=== PATIENT | female | born 1955 | race Caucasian/White ===

== ENCOUNTER → 2018-09-01 | Outpatient (CLI) | payer BC ==
[~2018-09-01] MED LIST: ALBU0.63 NEB; ALBU2.5V8 INH; BENZ200C47 PO; CITA40TA5 PO; CYCL10TA2 PO; DOCU-150 PO; ESTR0.5T VG; GABA800T5 PO; HYDR-3164 PO; MECL25TA3 PO; METF10007 PO; RAMI10CA53 PO; TYLENOL PM PO; VENTOLIN HFA18 GM INH
[2018-09-01 14:58] LABS: BASO % 1 % (0-3); EOS # 0.1 x10^3/uL (0.0-0.7); EOS % 1 % (0-3); HEMATOCRIT 37.9 % (36.0-47.0); HEMOGLOBIN 12.8 g/dL (12.0-15.5); LYMPH % 45 % (24-48); MEAN CORPUSCULAR HEMOGLOBIN 30 pg (25-35); MEAN CORPUSCULAR HGB CONC 34 g/dL (31-37); MEAN CORPUSCULAR VOLUME 88 fL (79-100); MONO # 0.4 x10^3/uL (0.0-1.1); MONO % 6 % (0-9); NEUT # 3.1 x10^3uL (1.8-7.7); NEUT % 47 % (31-73); PLATELET COUNT 194 x10^3/uL (140-400); RED BLOOD COUNT 4.32 x10^6/uL (3.50-5.40); RED CELL DISTRIBUTION WIDTH 12.8 % (11.5-14.5); WHITE BLOOD COUNT 6.6 x10^3/uL (4.0-11.0)
[2018-09-01 15:21] LABS: CALCIUM 9.1 mg/dL (8.5-10.1); CREATININE 0.9 mg/dL (0.6-1.0); GFR 63.4; POTASSIUM 4.2 mmol/L (3.5-5.1)
[2018-09-02 05:21] LABS: HEMOGLOBIN A1C 6.4 % (4.8-5.6)
--- NOTE | 2018-09-04 09:48 | NUR ---
FAXED PRE - OP TEST REPORTS TO 'S OFFICE FOR REVIEW AND RECEIVED TRANSMITTAL CONFIRMATION.
== END | disposition home or self-care (01) ==
LOC: SURGPAT 14:06
PROVIDERS: ATTEND Surgery
DX: K80.20 Calculus of gallbladder without cholecystitis without obstruction (principal)
CPT/HCPCS: 36415; 80048; 83036; 85025

== ENCOUNTER 2018-09-08 09:34 | Day surgery (SDC) | payer BC ==
[~2018-09-08] VITALS: Ht 162.6 cm; Wt 70.3 kg
[~2018-09-08 09:34] MED LIST changes: +BUPIVAC MPF-EPI 0.5%-1:200000 30 ML VIAL. ONE; +DEXAMETHASONE SOD PHOS 20 MG/5 ML VIAL. ONE; -DOCU-150 PO; +FAMOTIDINE 20 MG/2 ML VIAL ONE; +GLUCAGON,HUMAN RECOMBINANT 1 MG/ML VIAL. ONE; -HYDR-3164 PO; +HYDROmorphone 2 MG/ML VIAL IV PRN; +IOHEXOL 300 MG/ML 100ML VIAL. ONE; +LIDOCAINE 1% PF 2 ML VIAL. ID PRN; +LIDOCAINE 2% PF 5 ML VIAL. ONE; +MORPHINE SULFATE 2 MG/ML VIAL. IV PRN; +ONDANSETRON PF 4 MG/2 ML VIAL. ONE; +PROCHLORPERAZINE 10 MG/2 ML VIAL. IV PRN; +PROPOFOL 20 ML IV ONE; +ROCURONIUM 50 MG/5 ML VIAL. ONE; +SEVOFLURANE > 120 MINUTES. IH ONE; +SURGICEL HEMOSTAT 4X8 EACH. ONE; +fentaNYL PF VIAL 100 MCG/2 ML VIAL IV PRN; +fentaNYL PF VIAL 100 MCG/2 ML VIAL ONE
[2018-09-08] MEDS: IV RINGERS,LACTATED 1000ML 1,000 ML IV SCH ×2 (10:21→11:54)
[2018-09-08] MEDS ORDERED: NEOSTIGMINE 10 MG/10 ML VIAL. ONE (10:56)
[2018-09-08] MEDS ORDERED: GLYCOPYRROLATE 1 MG/5 ML VIAL. ONE (10:56)
[2018-09-08] MEDS ORDERED: NALOXONE 0.4 MG/ML VIAL. ONE (11:36)
--- NOTE | 2018-09-08 11:41 | DISCH ---
DISCHARGE INSTRUCTIONS Condition on Discharge Condition on Discharge: Stable Activity After Discharge Activity Instructions for Disc: Activity as tolerated, Avoid exertion Lifting Instructions after Dis: No heavy lifting Driving Instructions after Dis: Do not drive (3-4 days) Diet after Discharge Diet after Discharge: Regular Wound Incision Care Wound/Incision Care: Ice to area for comfort Other wound/incision instructi: candi shower Tuesday Follow-Up Follow up with: Milind 09/15 MCKENNA TREVINO MD Sep 08, 2018 11:41
--- NOTE | 2018-09-08 11:42 | RAD ---
Intraoperative cholangiogram, 09/08/2018: HISTORY: Cholecystectomy 3 spot films from surgery are presented for review. Contrast has been injected into the cystic duct remnant. 0.3 minutes of fluoroscopy time was utilized. There is good flow contrast into the duodenum at the ampulla. No filling defect is seen in the common duct to suggest a retained calculus. The incompletely opacified intrahepatic ducts are unremarkable. No contrast extravasation is seen. IMPRESSION: No significant abnormality is detected. Electronically signed by: Roni Turner MD (09/08/2018 11:39 AM) [facility]
--- NOTE | 2018-09-08 11:43 | PDOC ---
BRIEF OPERATIVE NOTE Date: Sep 08, 2018 Pre-Op Diagnosis symptomatic cholelithiasis Post-Op Diagnosis same Procedure Performed l/s cholecystectomy with cholangiograms Surgeon Milind Gem Setter Gloria FRAGOSO Anesthesia Type: General Blood Loss 25cc IV Fluid 1100cc Specimens Obtained GB Findings supple GB, normal grams, generous liver Complications none MCKENNA TREVINO MD Sep 08, 2018 11:43
[2018-09-08] MEDS ORDERED: DOCU-150 PO (12:27)
[2018-09-08] MEDS ORDERED: HYDR-3164 PO (12:27)
[2018-09-08] MEDS ORDERED: HYDROcodone/APAP 5/325MG 1 TAB TABLET PO ONE (12:30)
--- NOTE | 2018-09-08 12:52 | OP ---
DATE OF SURGERY: 09/08/2018 PREOPERATIVE DIAGNOSIS: Symptomatic cholelithiasis. POSTOPERATIVE DIAGNOSIS: Symptomatic cholelithiasis. PROCEDURE: Laparoscopic cholecystectomy with cholangiogram. SURGEON: Mckenna Trevino MD ANESTHESIA: General endotracheal. ESTIMATED BLOOD LOSS: 25. IV 1100. INDICATIONS: The patient is a 62-year-old with postprandial right upper quadrant pain and an ultrasound showing stones. She is brought for cholecystectomy. OPERATIVE FINDINGS: The liver was generous, gallbladder was supple. Cholangiograms were normal. DESCRIPTION OF PROCEDURE: The patient brought to the operating suite, given a general endotracheal anesthetic and the abdomen prepped and draped in usual sterile fashion. An infraumbilical incision was infiltrated with local anesthetic, incised and a 5 mm Visiport used to safely gain access into the abdominal cavity, taking care to avoid injury to abdominal contents. Pneumoperitoneum established. Camera inserted. Inspection carried out with results as noted above. With the table in reverse Trendelenburg rolled to the left, the epigastric, midclavicular, and lateral ports were placed under direct vision. The gallbladder was retracted superolaterally and the cystic duct and cystic artery were exposed. The duct was clipped on the gallbladder side. Cholangiograms were made. These were normal. In light of this, the catheter was removed. The cystic duct was clipped x 3 and divided, taking care to avoid injury or compromise the common duct. An anterior and posterior branch of the cystic artery were clipped and divided and the gallbladder freed from the bed with cautery dissection and placed in an EndoCatch bag. Good hemostasis was present and no evidence of bile leak from the fossa was seen. Table returned to level. Gallbladder delivered through the epigastric incision. Epigastric incision closed with interrupted 0 Vicryl suture. Intra-abdominal pressure decreased to 6 cm of water. No bleeding from the epigastric closure or from the midclavicular or lateral port sites after their removal. Abdomen decompressed, camera slowly removed, no bleeding seen. Skin incisions closed with subcuticular 4-0 Monocryl and Steri-Strips. Sterile dressings applied. The patient awakened from her anesthetic and taken to the recovery room in satisfactory condition. MCKENNA TREVINO MD DR: MICHELLE/jacquie JOB#: [id number] / [id number]
[2018-09-08 13:25] VITALS: BP 132/75
--- NOTE | 2018-09-11 14:09 | PATHOLOGY ---
[facility] Accession Number: [id number] . 01 Material submitted: . GALLBLADDER . 01 Clinical history: . Cholelithiasis . 02 Diagnosis: Gallbladder, cholecystectomy: - Cholelithiasis. - Cholesterolosis, focal. - Chronic cholecystitis. (JPM:blayne; 09/11/2018) QMS/09/11/2018 . 02 Comment: There is no evidence of malignancy. . 02 Electronically signed: . Kirt Iglesias MD, Pathologist NPI- [id number] . 01 Gross description: . The specimen is received in formalin, labeled "Todd, Zoila, gallbladder" and consists of an intact green-ellis, smooth, and shiny gallbladder measuring 8.4 cm in length and up to 2.4 cm in diameter. The margin is inked black. Opening reveals a lumen filled with tenacious green bile and a single spiculated black calculus measuring 0.5 x 0.4 cm. The mucosa is green-brown with yellow streaks and an average wall thickness of 0.1 cm. No masses or polyps are identified. Med Asst sections are submitted in A1. (SDY; 09/08/2018) SYU/SYU . 02 Pathologist provided ICD-10: K80.10, K82.4 . 02 CPT . 399164 Specimen Comment: A courtesy copy of this report has been sent to Specimen Comment: [phone], . Specimen Comment: Report sent to / DR [place] Performed at: [address], [place], [place] [id number] MD David Mckeon MD Phone: [phone] Performed at: 02 [facility] [address] [place], [place] [id number] MD Kirt Iglesias MD Phone: [phone]
== END 2018-09-08 14:00 | disposition home or self-care (01) ==
LOC: SURG 09:34 → EDUNIT# 11:00 → SURG 14:00
PROVIDERS: ATTEND Surgery
DX: K80.10 Calculus of gallbladder with chronic cholecystitis without obstruction (principal); I10 Essential (primary) hypertension; E78.5 Hyperlipidemia, unspecified; D64.9 Anemia, unspecified; E55.9 Vitamin D deficiency, unspecified; Z98.42 Cataract extraction status, left eye; Z98.41 Cataract extraction status, right eye; Z96.1 Presence of intraocular lens; Z90.710 Acquired absence of both cervix and uterus; Z98.890 Other specified postprocedural states; Z72.89 Other problems related to lifestyle; Z88.6 Allergy status to analgesic agent; Z88.1 Allergy status to other antibiotic agents; Z88.5 Allergy status to narcotic agent; Z79.899 Other long term (current) drug therapy
CPT/HCPCS: 47563; 74300; 82962; 88304; A7015; J0690; J1100; J2001; J2310; J2405; J2704; J2710; J3010; J3490; J7030; J7120; Q9967; J1610

== ENCOUNTER → 2021-03-04 | Day surgery (SDC) | payer MEDICARE ==
[~2021-03-04] VITALS: Ht 162.6 cm; Wt 59.0 kg
[~2021-03-04] MED LIST changes: -BUPIVAC MPF-EPI 0.5%-1:200000 30 ML VIAL. ONE; -DEXAMETHASONE SOD PHOS 20 MG/5 ML VIAL. ONE; +DOCU-158 PO; -FAMOTIDINE 20 MG/2 ML VIAL ONE; -GLUCAGON,HUMAN RECOMBINANT 1 MG/ML VIAL. ONE; +HYDR-3164 PO; -HYDROmorphone 2 MG/ML VIAL IV PRN; +HYDROmorphone 2 MG/ML VIAL IVP PRN; -IOHEXOL 300 MG/ML 100ML VIAL. ONE; +IV RINGERS,LACTATED 1000ML 1,000 ML IV SCH; -LIDOCAINE 1% PF 2 ML VIAL. ID PRN; +MECL-75 PO; -MECL25TA3 PO; +MORPHINE SULFATE 2 MG/ML INJ. IVP PRN; -MORPHINE SULFATE 2 MG/ML VIAL. IV PRN; -ONDANSETRON PF 4 MG/2 ML VIAL. ONE; -PROCHLORPERAZINE 10 MG/2 ML VIAL. IV PRN; +PROCHLORPERAZINE 10 MG/2 ML VIAL. IVP PRN; +PROPOFOL 10 MG/ML (20ML) VIAL. IV ONE; -PROPOFOL 20 ML IV ONE; -ROCURONIUM 50 MG/5 ML VIAL. ONE; -SEVOFLURANE > 120 MINUTES. IH ONE; -SURGICEL HEMOSTAT 4X8 EACH. ONE; -fentaNYL PF VIAL 100 MCG/2 ML VIAL IV PRN; +fentaNYL PF VIAL 100 MCG/2 ML VIAL IVP PRN; -fentaNYL PF VIAL 100 MCG/2 ML VIAL ONE
[2021-03-04 08:32] VITALS: BP 149/81
[2021-03-04 09:21] VITALS: BP 142/81
--- NOTE | 2021-03-05 17:08 | PATHOLOGY ---
[facility] Accession Number: [id number] . 01 Material submitted: . PART A: duodenum - DUODENAL BIOPSIES R/O CELIAC PART B: colon - RANDOM COLON BIOPSY . 01 Clinical history: . DIARRHEA, WT LOSS, HX COL ABD PAIN EGD/COLON . 02 Diagnosis: A. Duodenal biopsies: - No diagnostic abnormalities. . B. Colonic mucosa, random colon biopsies: - No diagnostic abnormalities. (JPM:pit; 03/05/2021) [facility] 03/05/2021 1647 Local . 02 Comment: Sections of the duodenal biopsy reveal multiple segments of duodenal and small intestine mucosa. Where best oriented, mucosal villi show no sprue-like changes or significant inflammatory changes. . Sections of the random colon biopsy reveal multiple segments of colonic mucosa containing several mucosal-associated lymphoid aggregates. There is no evidence of a chronic destructive colitis, lymphocytic colitis, or collagenous colitis. (JPM:pit; 03/05/2021) . 02 Electronically signed: . Kirt Iglesias MD, Pathologist NPI- [id number] . 01 Gross description: . A. The specimen is received in formalin, labeled "Zoila Brooks, duodenal biopsies". Received are five segments of pale pantoja tissue ranging in size from 0.3-0.4 cm in maximum dimensions. The specimen is submitted entirely in cassette A1. . B. The specimen is received in formalin, labeled "Zoila Brooks, random colon biopsies". Received are multiple segments of pale pantoja tissue ranging in size from 0.3-0.7 cm in maximum dimensions. The specimen is submitted entirely in cassette B1. (CAA; 03/04/2021) QAC/QAC 03/04/2021 1613 Local . 02 Pathologist provided ICD-10: R19.7, R63.4 . 02 CPT . 942467, 049883 Specimen Comment: A courtesy copy of this report has been sent to [phone], [phone] Specimen Comment: [phone] Specimen Comment: Report sent to / DR [place] Performed at: 01 [facility] [address] [place] [address] [address], [place] [id number] MD Marin Marsh MD Phone: [phone] Performed at: 02 [facility] [address] [place], [place] [id number] MD Kirt Iglesias MD Phone: [phone]
== END | disposition home or self-care (01) ==
LOC: ENDOS 08:10
PROVIDERS: ATTEND Internal Medicine Gastroenterology
DX: K52.9 Noninfective gastroenteritis and colitis, unspecified (principal); R63.4 Abnormal weight loss; K64.0 First degree hemorrhoids; R10.84 Generalized abdominal pain; K29.50 Unspecified chronic gastritis without bleeding; K31.89 Other diseases of stomach and duodenum; K63.89 Other specified diseases of intestine; I10 Essential (primary) hypertension; J45.909 Unspecified asthma, uncomplicated; E66.9 Obesity, unspecified; E11.9 Type 2 diabetes mellitus without complications; F32.9 Major depressive disorder, single episode, unspecified; Z90.710 Acquired absence of both cervix and uterus; Z90.49 Acquired absence of other specified parts of digestive tract; Z98.890 Other specified postprocedural states; Z79.899 Other long term (current) drug therapy; Z79.84 Long term (current) use of oral hypoglycemic drugs; Z87.891 Personal history of nicotine dependence; Z88.8 Allergy status to other drugs, medicaments and biological substances
CPT/HCPCS: 43239; 45380; 88305; J2704; 45378